=== PATIENT | male | born 1955 | race African-American/Black ===

== ENCOUNTER 2018-04-12 09:57 | Inpatient (IN) | payer OTHER ==
[2018-04-12 10:20] VITALS: BMI 19.9
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
[2018-04-12] MEDS ORDERED: guaiFENesin/D-METHORPHAN HB 10 ML UNIT-DOSE CUPS PO PRN (11:19)
[2018-04-12] MEDS ORDERED: MENTHOL/PHENOL 1 EACH UD MM PRN (11:19)
[2018-04-12] MEDS ORDERED: MAG HYDROX/AL HYDROX/SIMETH 30 ML UNIT-DOSE CUP PO PRN (11:19)
[2018-04-12] MEDS ORDERED: IBUPROFEN 400 MG TABLET (FP) PO PRN (11:19)
[2018-04-12] MEDS ORDERED: P-EPHED 60MG/TRIPROLIDI 2.5MG TABLET PO PRN (11:19)
[2018-04-12] MEDS ORDERED: chlordiazePOXIDE HCL 25 MG CAPSULE PO PRN (11:19)
[2018-04-12] MEDS ORDERED: MAGNESIUM HYDROX 2400MG/30ML ORAL SUSPENSION 30 ML CUP PO PRN (11:19)
[2018-04-12] MEDS ORDERED: LOPERAMIDE HCL 2 MG CAPSULE PO PRN (11:19)
[2018-04-12] MEDS ORDERED: ACETAMINOPHEN 325 MG TABLET (FP) PO PRN (11:19)
[2018-04-12] MEDS ORDERED: MAGNESIUM CITRATE 300 ML BOTTLE PO PRN (11:19)
[2018-04-12] MEDS ORDERED: TRIMETHOBENZAMIDE HCL 200MG/2ML INJ IM PRN (11:23)
[2018-04-12] MEDS: amLODIPine BESYLATE 10 MG TABLET (FP) PO SCH (12:49)
[2018-04-12] MEDS: NICOTINE 21 MG/24 HOURS TOPICAL PATCH TD SCH (12:50)
--- NOTE | 2018-04-12 14:33 | EKG ---
Test Reason : Blood Pressure : / mmHG Vent. Rate : 126 BPM Atrial Rate : 126 BPM P-R Int : 168 ms QRS Dur : 080 ms QT Int : 300 ms P-R-T Axes : 078 073 072 degrees QTc Int : 434 ms SINUS TACHYCARDIA BIATRIAL ENLARGEMENT ABNORMAL ECG NO PREVIOUS ECGS AVAILABLE Confirmed by MERCEDES HYDE MD ([id number]) on 04/12/2018 2:33:17 PM Referred By: Confirmed By:MERCEDES HYDE MD
--- NOTE | 2018-04-12 16:01 | PN ---
BHS Progress Note Note: history of positive ppd,will do chest xray in am
[2018-04-12] MEDS: chlordiazePOXIDE HCL 25 MG CAPSULE PO SCH ×2 (17:44→22:10)
[2018-04-12] MEDS: THIAMINE HCL 100 MG TABLET (FP) PO SCH (22:09)
[2018-04-12] MEDS: MELATONIN 5 MG TABLETS PO PRN (22:11)
[2018-04-13] MEDS: chlordiazePOXIDE HCL 25 MG CAPSULE PO SCH ×4 (05:22→22:25)
[2018-04-13 09:55] LABS: RBC 3.91 M/mm3 (4.00-5.60)
[2018-04-13 10:01] LABS: MCH 35.8 pg (25.7-33.7); MCHC 34.1 g/dl (32.0-35.9); MEAN CELL VOLUME 105.1 fl (80-96); MEAN PLT VOLUME 9.9 fl (7.5-11.1); PLATELET COUNT 266 K/MM3 (134-434); RDW 14.9 % (11.9-15.9); WHITE BLOOD COUNT 7.7 K/mm3 (4.0-10.0)
[2018-04-13] MEDS: NICOTINE 21 MG/24 HOURS TOPICAL PATCH TD SCH (10:24)
[2018-04-13] MEDS: PRENATAL VITAMINS W/ FOLIC ACID TABLET (FP) PO SCH (10:24)
[2018-04-13] MEDS: amLODIPine BESYLATE 10 MG TABLET (FP) PO SCH (10:24)
[2018-04-13 10:36] LABS: ALBUMIN 4.2 g/dl (3.4-5.0); ALK PHOS 143 U/L (45-117); ANION GAP 16 MMOL/L (8-16); BILIRUBIN,TOTAL 0.5 mg/dL (0.2-1); BLOOD UREA NITROGEN 9 mg/dL (7-18); CALCIUM 10.3 mg/dL (8.5-10.1); CHLORIDE 106 mmol/L (98-107); CO2 22 mmol/L (21-32); GLUCOSE,RANDOM 109 mg/dL (74-106); POTASSIUM 3.7 mmol/L (3.5-5.1); SGOT/AST 39 U/L (15-37); SGPT/ALT 39 U/L (13-61); SODIUM 143 mmol/L (136-145); TOT PROT 7.6 g/dl (6.4-8.2)
[2018-04-13] MEDS ORDERED: FLU VACCINE QUAD 60 MCG/0.5 ML (MDV 18-19) IM ONE (12:00)
--- NOTE | 2018-04-13 12:47 | PN ---
S CIWA - CIWA Score Nausea/Vomitin-Mild Nausea/No Vomiting Muscle Tremors: 4-Moderate,w/Arms Extend Anxiety: 4-Mod. Anxious/Guarded Agitation: 4-Moderately Restless Paroxysmal Sweats: No Perspiration Orientation: 0-Oriented Tacttile Disturbances: 0-None Auditory Disturbances: 0-None Visual Disturbances: 0-None Headache: 1-Very Mild CIWA-Ar Total Score: 14 BHS Progress Note (SOAP) Subjective: Interrupted sleep, sweating, anxious Objective: 04/13/18 12:44 Last Vital Signs Temp Pulse Resp BP Pulse Ox 97.2 F L 82 18 126/84 04/13/18 09:13 04/13/18 09:13 04/13/18 09:13 04/13/18 09:13 Laboratory Tests 04/12/18 04/13/18 04/13/18 12:00 06:00 06:00 WBC 7.7 RBC 3.91 L Hgb 14.0 Hct 41.0 MCV 105.1 H MCH 35.8 H MCHC 34.1 RDW 14.9 Plt Count 266 MPV 9.9 Sodium 143 Potassium 3.7 Chloride 106 Carbon Dioxide 22 Anion Gap 16 BUN 9 Creatinine 1.0 Creat Clearance w eGFR > 60 Random Glucose 109 H Calcium 10.3 H Total Bilirubin 0.5 AST 39 H ALT 39 Alkaline Phosphatase 143 H Total Protein 7.6 Albumin 4.2 RPR Titer HIV 1&2 Antibody Screen Negative HIV P24 Antigen Negative 04/13/18 06:00 WBC RBC Hgb Hct MCV MCH MCHC RDW Plt Count MPV Sodium Potassium Chloride Carbon Dioxide Anion Gap BUN Creatinine Creat Clearance w eGFR Random Glucose Calcium Total Bilirubin AST ALT Alkaline Phosphatase Total Protein Albumin RPR Titer Nonreactive HIV 1&2 Antibody Screen HIV P24 Antigen Labs reviewed Assessment: 04/13/18 12:47 Withdrawal symptoms Plan: Continue detox
[2018-04-13 14:49] LABS: URINE APPEARANCE CLEAR; URINE BILIRUBIN NEGATIVE (<2.0 mg/dL); URINE COLOR AMBER; URINE GLUCOSE (UA) NEGATIVE (NEGATIVE); URINE KETONE NEGATIVE (NEGATIVE); URINE LEUK ESTERASE NEGATIVE (NEGATIVE); URINE NITRITE NEGATIVE (NEGATIVE)
[2018-04-13 14:50] LABS: URINE PROTEIN 1+ (NEGATIVE)
[2018-04-13 14:52] LABS: EPI CELLS RARE /HPF (FEW); URINE BACTERIA RARE /hpf (NONE SEEN); URINE HYALINE CAST 1 /lpf; URINE MUCUS MODERATE
[2018-04-13] MEDS: THIAMINE HCL 100 MG TABLET (FP) PO SCH (21:28)
[2018-04-13] MEDS: MELATONIN 5 MG TABLETS PO PRN (21:29)
[2018-04-14] MEDS: chlordiazePOXIDE HCL 25 MG CAPSULE PO SCH ×2 (06:10→10:06)
[2018-04-14] MEDS: amLODIPine BESYLATE 10 MG TABLET (FP) PO SCH (10:06)
[2018-04-14] MEDS: PRENATAL VITAMINS W/ FOLIC ACID TABLET (FP) PO SCH (10:06)
[2018-04-14] MEDS: NICOTINE 21 MG/24 HOURS TOPICAL PATCH TD SCH (10:10)
--- NOTE | 2018-04-14 11:30 | PN ---
S CIWA - CIWA Score Nausea/Vomitin Muscle Tremors: 2 Anxiety: 2 Agitation: 2 Paroxysmal Sweats: 2 Orientation: 0-Oriented Tacttile Disturbances: 2-Mild Itch/Numbness/Burn Auditory Disturbances: 0-None Visual Disturbances: 1-Very Mild Sensitivity Headache: 2-Mild CIWA-Ar Total Score: 15 S Progress Note (SOAP) Subjective: Interrupted sleep, sweats and tremors Objective: 04/14/18 11:29 Vital Signs - 8 hr 04/14/18 04/14/18 03:30 06:23 Temperature 97.5 F L Pulse Rate 71 Respiratory 18 18 Rate Blood Pressure 107/61 Laboratory Last Values WBC 7.7 K/mm3 (4.0-10.0) 04/13/18 06:00 RBC 3.91 M/mm3 (4.00-5.60) L 04/13/18 06:00 Hgb 14.0 GM/dL (11.7-16.9) 04/13/18 06:00 Hct 41.0 % (35.4-49) 04/13/18 06:00 MCV 105.1 fl (80-96) H 04/13/18 06:00 MCH 35.8 pg (25.7-33.7) H 04/13/18 06:00 MCHC 34.1 g/dl (32.0-35.9) 04/13/18 06:00 RDW 14.9 % (11.9-15.9) 04/13/18 06:00 Plt Count 266 K/MM3 (134-434) 04/13/18 06:00 MPV 9.9 fl (7.5-11.1) 04/13/18 06:00 Sodium 143 mmol/L (136-145) 04/13/18 06:00 Potassium 3.7 mmol/L (3.5-5.1) 04/13/18 06:00 Chloride 106 mmol/L (98-107) 04/13/18 06:00 Carbon Dioxide 22 mmol/L (21-32) 04/13/18 06:00 Anion Gap 16 MMOL/L (8-16) 04/13/18 06:00 BUN 9 mg/dL (7-18) 04/13/18 06:00 Creatinine 1.0 mg/dL (0.55-1.3) 04/13/18 06:00 Creat Clearance w eGFR > 60 (>60) 04/13/18 06:00 Random Glucose 109 mg/dL (74-106) H 04/13/18 06:00 Calcium 10.3 mg/dL (8.5-10.1) H 04/13/18 06:00 Total Bilirubin 0.5 mg/dL (0.2-1) 04/13/18 06:00 AST 39 U/L (15-37) H 04/13/18 06:00 ALT 39 U/L (13-61) 04/13/18 06:00 Alkaline Phosphatase 143 U/L (45-117) H 04/13/18 06:00 Total Protein 7.6 g/dl (6.4-8.2) 04/13/18 06:00 Albumin 4.2 g/dl (3.4-5.0) 04/13/18 06:00 Urine Color [place] 04/13/18 13:00 Urine Appearance Clear 04/13/18 13:00 Urine pH 6.0 (5.0-8.0) 04/13/18 13:00 Ur Specific [place] 1.021 (1.001-1.035) 04/13/18 13:00 Urine Protein 1+ (NEGATIVE) H 04/13/18 13:00 Urine Glucose (UA) Negative (NEGATIVE) 04/13/18 13:00 Urine Ketones Negative (NEGATIVE) 04/13/18 13:00 Urine Blood Negative (NEGATIVE) 04/13/18 13:00 Urine Nitrite Negative (NEGATIVE) 04/13/18 13:00 Urine Bilirubin Negative (<2.0 mg/dL) 04/13/18 13:00 Urine Urobilinogen 2.0 mg/dL (0.2-1.0) 04/13/18 13:00 Ur Leukocyte Esterase Negative (NEGATIVE) 04/13/18 13:00 Urine WBC (Auto) 2 /hpf (3-5) 04/13/18 13:00 Urine RBC (Auto) 2 /hpf (0-3) 04/13/18 13:00 Ur Epithelial Cells Rare /HPF (FEW) 04/13/18 13:00 Urine Bacteria Rare /hpf (NONE SEEN) 04/13/18 13:00 Hyaline Casts 1 /lpf 04/13/18 13:00 Urine Mucus Moderate 04/13/18 13:00 RPR Titer Nonreactive (NONREACTIVE) 04/13/18 06:00 HIV 1&2 Antibody Screen Negative 04/12/18 12:00 HIV P24 Antigen Negative 04/12/18 12:00 Labs noted Assessment: 04/14/18 11:29 Withdrawal sx Plan: Continue detox
[2018-04-14] MEDS: chlordiazePOXIDE 5 MG CAPSULE PO SCH ×2 (17:35→22:08)
[2018-04-14] MEDS: THIAMINE HCL 100 MG TABLET (FP) PO SCH (22:08)
[2018-04-14] MEDS: MELATONIN 5 MG TABLETS PO PRN (22:10)
[2018-04-15] MEDS: chlordiazePOXIDE 5 MG CAPSULE PO SCH ×2 (05:28→10:41)
[2018-04-15] MEDS: amLODIPine BESYLATE 10 MG TABLET (FP) PO SCH (10:41)
[2018-04-15] MEDS: NICOTINE 21 MG/24 HOURS TOPICAL PATCH TD SCH (10:41)
[2018-04-15] MEDS: PRENATAL VITAMINS W/ FOLIC ACID TABLET (FP) PO SCH (10:41)
--- NOTE | 2018-04-15 16:49 | PN ---
BHS Progress Note (SOAP) Subjective: Denies; appears anxious Objective: 04/15/18 16:46 Last Vital Signs Temp Pulse Resp BP Pulse Ox 98.6 F 66 20 128/74 04/15/18 14:53 04/15/18 14:53 04/15/18 14:53 04/15/18 14:53 Laboratory Tests 04/12/18 04/13/18 04/13/18 12:00 06:00 06:00 WBC 7.7 RBC 3.91 L Hgb 14.0 Hct 41.0 MCV 105.1 H MCH 35.8 H MCHC 34.1 RDW 14.9 Plt Count 266 MPV 9.9 Sodium 143 Potassium 3.7 Chloride 106 Carbon Dioxide 22 Anion Gap 16 BUN 9 Creatinine 1.0 Creat Clearance w eGFR > 60 Random Glucose 109 H Calcium 10.3 H Total Bilirubin 0.5 AST 39 H ALT 39 Alkaline Phosphatase 143 H Total Protein 7.6 Albumin 4.2 Urine Color Urine Appearance Urine pH Ur Specific [place] Urine Protein Urine Glucose (UA) Urine Ketones Urine Blood Urine Nitrite Urine Bilirubin Urine Urobilinogen Ur Leukocyte Esterase Urine WBC (Auto) Urine RBC (Auto) Ur Epithelial Cells Urine Bacteria Hyaline Casts Urine Mucus RPR Titer HIV 1&2 Antibody Screen Negative HIV P24 Antigen Negative 04/13/18 04/13/18 06:00 13:00 WBC RBC Hgb Hct MCV MCH MCHC RDW Plt Count MPV Sodium Potassium Chloride Carbon Dioxide Anion Gap BUN Creatinine Creat Clearance w eGFR Random Glucose Calcium Total Bilirubin AST ALT Alkaline Phosphatase Total Protein Albumin Urine Color [place] Urine Appearance Clear Urine pH 6.0 Ur Specific [place] 1.021 Urine Protein 1+ H Urine Glucose (UA) Negative Urine Ketones Negative Urine Blood Negative Urine Nitrite Negative Urine Bilirubin Negative Urine Urobilinogen 2.0 Ur Leukocyte Esterase Negative Urine WBC (Auto) 2 Urine RBC (Auto) 2 Ur Epithelial Cells Rare Urine Bacteria Rare Hyaline Casts 1 Urine Mucus Moderate RPR Titer Nonreactive HIV 1&2 Antibody Screen HIV P24 Antigen Labs reviewed: abnormal UA Assessment: 04/15/18 16:48 Withdrawal sx Noted with abnormal UA Plan: Continue detox Abnormal UA: encouraged PO water intake, repeat UA
[2018-04-15] MEDS: chlordiazePOXIDE HCL 10 MG CAPSULE PO SCH ×2 (17:42→22:09)
[2018-04-15] MEDS: MELATONIN 5 MG TABLETS PO PRN (22:09)
[2018-04-15] MEDS: THIAMINE HCL 100 MG TABLET (FP) PO SCH (22:09)
[2018-04-15 22:55] LABS: URINE APPEARANCE CLEAR; URINE BILIRUBIN NEGATIVE (<2.0 mg/dL); URINE COLOR LTYELLOW; URINE GLUCOSE (UA) NEGATIVE (NEGATIVE); URINE KETONE NEGATIVE (NEGATIVE); URINE LEUK ESTERASE NEGATIVE (NEGATIVE); URINE NITRITE NEGATIVE (NEGATIVE); URINE PROTEIN NEGATIVE (NEGATIVE); URINE UROBILINOGEN NEGATIVE mg/dL (0.2-1.0)
[2018-04-16] MEDS: chlordiazePOXIDE HCL 10 MG CAPSULE PO SCH (05:21)
[2018-04-16 06:18] VITALS: BP 117/69; PULSE 69; TEMP 97.5
--- NOTE | 2018-04-16 14:53 | DS ---
[facility] Detox Discharge Summary Admission Date: 04/12/18 - History Present History: Alcohol Dependence Pertinent Past History: HTN Neck pain - Physical Exam Results Vital Signs: Vital Signs Temperature 97.5 F L 04/16/18 06:18 Pulse Rate 69 04/16/18 06:18 Respiratory Rate 16 04/16/18 06:18 Blood Pressure 117/69 04/16/18 06:18 O2 Sat by Pulse Oximetry (%) Pertinent Admission Physical Exam Findings: Withdrawal sxs Laboratory Tests 04/12/18 04/13/18 04/13/18 12:00 06:00 06:00 WBC 7.7 RBC 3.91 L Hgb 14.0 Hct 41.0 MCV 105.1 H MCH 35.8 H MCHC 34.1 RDW 14.9 Plt Count 266 MPV 9.9 Sodium 143 Potassium 3.7 Chloride 106 Carbon Dioxide 22 Anion Gap 16 BUN 9 Creatinine 1.0 Creat Clearance w eGFR > 60 Random Glucose 109 H Calcium 10.3 H Total Bilirubin 0.5 AST 39 H ALT 39 Alkaline Phosphatase 143 H Total Protein 7.6 Albumin 4.2 Urine Color Urine Appearance Urine pH Ur Specific [place] Urine Protein Urine Glucose (UA) Urine Ketones Urine Blood Urine Nitrite Urine Bilirubin Urine Urobilinogen Ur Leukocyte Esterase Urine WBC (Auto) Urine RBC (Auto) Ur Epithelial Cells Urine Bacteria Hyaline Casts Urine Mucus RPR Titer HIV 1&2 Antibody Screen Negative HIV P24 Antigen Negative 04/13/18 04/13/18 04/15/18 06:00 13:00 22:45 WBC RBC Hgb Hct MCV MCH MCHC RDW Plt Count MPV Sodium Potassium Chloride Carbon Dioxide Anion Gap BUN Creatinine Creat Clearance w eGFR Random Glucose Calcium Total Bilirubin AST ALT Alkaline Phosphatase Total Protein Albumin Urine Color Allison Ltyellow Urine Appearance Clear Clear Urine pH 6.0 6.0 Ur Specific [place] 1.021 1.017 Urine Protein 1+ H Negative Urine Glucose (UA) Negative Negative Urine Ketones Negative Negative Urine Blood Negative Negative Urine Nitrite Negative Negative Urine Bilirubin Negative Negative Urine Urobilinogen 2.0 Negative Ur Leukocyte Esterase Negative Negative Urine WBC (Auto) 2 Urine RBC (Auto) 2 Ur Epithelial Cells Rare Urine Bacteria Rare Hyaline Casts 1 Urine Mucus Moderate RPR Titer Nonreactive HIV 1&2 Antibody Screen HIV P24 Antigen Labs reviewed - Treatment Hospital Course: Detox Protocol Followed, Detoxed Safely, Responded well, Discharged Condition Good - Medication Discharge Medications: Ambulatory Orders Amlodipine Besylate [Norvasc -] 10 mg PO DAILY 04/12/18 - Diagnosis (1) Alcohol dependence with uncomplicated withdrawal Status: Acute (2) Essential hypertension Status: Chronic (3) Neck pain Status: Chronic (4) Abnormal finding on urinalysis Status: Acute - AMA Did Patient Leave Against Medical Advice: No (F/U with your PCP within 1 week )
== END 2018-04-16 09:03 | disposition home or self-care (01) | DRG 775 ==
LOC: YASAS 09:57 → Y3N 11:33
PROC: HZ2ZZZZ Detoxification Services for Substance Abuse Treatment (ICD-10-PCS; principal; 2018-04-12)
DX: F10.230 Alcohol dependence with withdrawal, uncomplicated (principal); F17.210 Nicotine dependence, cigarettes, uncomplicated; M54.2 Cervicalgia; R82.90 Unspecified abnormal findings in urine; R76.11 Nonspecific reaction to tuberculin skin test without active tuberculosis; M50.20 Other cervical disc displacement, unspecified cervical region; R26.2 Difficulty in walking, not elsewhere classified; Z99.89 Dependence on other enabling machines and devices
CPT/HCPCS: 36415; 71045-TC-FY; 80053; 81003; 81015; 85027; 86593; 87389; 90688; 93005; 93010; G0008